=== PATIENT | male | born 1960 | race Caucasian/White ===

== ENCOUNTER 2022-03-14 16:28 | Emergency (ER) | payer OTHER, MEDICAID ==
[~2022-03-14] VITALS: Ht 172.7 cm; Wt 78.0 kg
[2022-03-14] MEDS ORDERED: TETANUS, DIPHTHERIA, PERTUSSIS VAC/PF 0.5ML (>10YR OLD) IM ONE (17:00)
[2022-03-14] MEDS ORDERED: CEFAZOLIN 1000MG PREMIX 50 ML IV ONE (18:45)
[2022-03-14] MEDS ORDERED: LIDOCAINE HCL/EPINEPHRINE 1%-EPI 1:100,000 20 ML VIAL INFIL NR (18:45)
[2022-03-14] MEDS ORDERED: LIDOCAINE HCL/EPINEPHRINE 1%-EPI 1:100,000 50 ML VIAL INFIL ONE (18:45)
[2022-03-14] MEDS ORDERED: ONDANSETRON HCL 4MG/2ML INJ IV ONE (19:15)
[2022-03-14 20:00] VITALS: BP 118/76
== END 2022-03-14 21:28 | disposition home or self-care (01) ==
LOC: ER 16:28
DX: S01.01XA Laceration without foreign body of scalp, initial encounter (principal); W18.39XA Other fall on same level, initial encounter; Y93.89 Activity, other specified; Y92.89 Other specified places as the place of occurrence of the external cause; Y99.8 Other external cause status
CPT/HCPCS: 12004; 70450; 73030; 90471; 90715; 96365; 99284; J0690; J2405; J3490; Z7610

== ENCOUNTER 2022-03-16 10:12 | Emergency (ER) | payer OTHER, MEDICAID ==
[~2022-03-16] VITALS: Ht 165.1 cm; Wt 68.6 kg
[2022-03-16] MEDS ORDERED: BO1 TP (10:38)
[2022-03-16 10:50] VITALS: BP 149/85
== END 2022-03-16 10:54 | disposition home or self-care (01) ==
LOC: ER 10:12
DX: S01.81XD Laceration without foreign body of other part of head, subsequent encounter (principal); X58.XXXD Exposure to other specified factors, subsequent encounter
CPT/HCPCS: 99282

== ENCOUNTER 2022-03-26 12:23 | Emergency (ER) | payer OTHER, MEDICAID ==
[~2022-03-26] VITALS: Ht 165.1 cm; Wt 68.0 kg
[~2022-03-26 12:23] MED LIST: BO1 TP
[2022-03-26 12:29] VITALS: BP 119/76
== END 2022-03-26 14:43 | disposition home or self-care (01) ==
LOC: ER 12:28
DX: Z48.02 Encounter for removal of sutures (principal)
CPT/HCPCS: 99281